=== PATIENT | female | born 1940 | race Caucasian/White ===

== ENCOUNTER 2020-12-07 14:22 | Emergency (ER) | payer MEDICARE, SELFPAY ==
[2020-12-07 14:48] VITALS: BP 169/110; PULSE 88; RESP 19; TEMP 36.9; O2SAT 100
--- NOTE | 2020-12-07 16:43 | ED.BACK ---
HPI - Back Pain/Injury General Chief Complaint: Back Pain/Injury <Max Kumar PA-C - Last Filed: 12/07/20 18:05> Stated Complaint: back pain <NELSON Sanchez Last Filed: 12/07/20 18:05> Time Seen by Provider: 12/07/20 15:39 <Max Kumar PA-C - Last Filed: 12/07/20 18:05> Source: patient <NELSON Sanchez Last Filed: 12/07/20 18:05> Mode of arrival: ambulatory <NELSON Sanchez Last Filed: 12/07/20 18:05> Limitations: no limitations <NELSON Sanchez Last Filed: 12/07/20 18:05> History of Present Illness HPI Narrative: Patient is a 80-year-old female who presents with chief complaint of pain that began when she rotated while sitting in the chair. Patient reports that since she intermittently has pain when changing position especially from going from a seated to standing position or rotating. Patient report she has still been able to walk and ambulate. Patient denies any radicular symptoms down her lower extremities, loss of bladder or bowel function or saddle paresthesias. She has used a heating pad but has not taking any ibuprofen, Tylenol or any other medications to alleviate her symptoms. <Max Kumar PA-C - Last Filed: 12/07/20 18:05> Related Data Allergies/Adverse Reactions: Allergies Allergy/AdvReac Type Severity Reaction Status Date / Time Penicillins Allergy Rash Verified 12/07/20 15:38 <Max Kumar PA-C - Last Filed: 12/07/20 18:05> Review of Systems Review of Systems: CONSTITUTIONAL: Denies fever, chills, or sweats. EYES: Denies visual changes, redness, or discharge. ENT: Denies rhinorrhea, congestion, sore throat, or otalgia. CARDIOVASCULAR: Denies chest pain, palpitations, or edema. RESPIRATORY: Denies cough or dyspnea. GASTROINTESTINAL: Denies abdominal pain, nausea, vomiting, or diarrhea. GENITOURINARY: Denies dysuria or hematuria. SKIN: Denies rash or itching. MUSCULOSKELETAL: Reports right low back pain Denies joint pain, or myalgia. NEUROLOGIC: Denies headache, numbness, dizziness, or weakness. PSYCHIATRIC: Denies anxiety or depression. <Max Kumar PA-C - Last Filed: 12/07/20 18:05> Exam Narrative: GENERAL: Well-appearing, well-nourished, and in no acute distress.Patient smiling and talking normally. HEAD: Normocephalic, atraumatic. EYES: PERRLA and EOMI. CHEST: Clear to auscultation. No respiratory distress. No wheezes rales or rhonchi HEART: Regular rate and rhythm. No murmur heard. Normal peripheral pulses. BACK: Patient gate steady. No pain with physical exam. Reports no pain presently and states it is intermittent with movement. No pain with palpation of spine. Or of paraspinal muscles. No neurological deficit. EXTREMITIES: Normal range of motion. SKIN: Warm, dry, no rash. NEURO: No focal deficits. Alert and oriented x3. PSYCH: Normal mood and affect. <Max Kumar PA-C - Last Filed: 12/07/20 18:05> Course BASIC ACOUSTIC ANALYST/PA Physician Supervision I did not see this patient nor was the care plan discussed with me. I was available for evaluation and consultation, I agree with the documentation as above <Frankie Astudillo MD - Last Filed: 12/07/20 19:01> Vital Signs Vital signs: Vital Signs Temperature 36.9 C 12/07/20 14:48 Pulse Rate 88 12/07/20 14:48 Respiratory Rate 19 12/07/20 14:48 Blood Pressure 169/110 H 12/07/20 14:48 Pulse Oximetry 100 12/07/20 14:48 Temperature 36.9 C 12/07/20 14:48 Pulse Rate 88 12/07/20 14:48 Respiratory Rate 19 12/07/20 14:48 Blood Pressure 169/110 H 12/07/20 14:48 Pulse Oximetry 100 12/07/20 14:48 <Max Kumar PA-C - Last Filed: 12/07/20 18:05> Vital Signs Temperature 36.9 C 12/07/20 14:48 Pulse Rate 88 12/07/20 14:48 Respiratory Rate 19 12/07/20 14:48 Blood Pressure 169/110 H 12/07/20 14:48 Pulse Oximetry 100 12/07/20 14:48 Temperature 36.9 C 12/07/20 14:48 Pulse Rate 88 12/07/20 14:48 Respi
== END 2020-12-07 17:19 | disposition home or self-care (01) ==
PROVIDERS: Emergency Provider Emergency Medicine; PCP Internal Medicine
DX: S39.012A Strain of muscle, fascia and tendon of lower back, initial encounter (principal); X58.XXXA Exposure to other specified factors, initial encounter
CPT/HCPCS: 99281